=== PATIENT | female | born 1995 | race Caucasian/White ===

== ENCOUNTER 2017-08-13 02:09 | Emergency (ER) | payer OTHER ==
[~2017-08-13] VITALS: Ht 157.5 cm; Wt 91.6 kg
[2017-08-13 02:29] VITALS: BP 113/53; Ht 157.5 cm; Wt 91.6 kg
== END 2017-08-13 04:52 | disposition left against medical advice (07) ==
LOC: ED 02:09
DX: Z53.21 Procedure and treatment not carried out due to patient leaving prior to being seen by health care provider (principal)

== ENCOUNTER 2017-11-08 20:01 | Emergency (ER) | payer OTHER ==
[~2017-11-08] VITALS: Ht 157.5 cm; Wt 93.4 kg
[2017-11-08 20:04] VITALS: Ht 157.5 cm; Wt 93.4 kg
[2017-11-08 20:14] LABS: microscopic required? NO
[2017-11-08 20:21] LABS: UA SPECIFIC GRAVITY 1.015 (1.005-1.035); urine erythrocyte NEGATIVE (NEGATIVE)
[2017-11-08 22:12] VITALS: BP 121/82
== END 2017-11-08 22:12 | disposition home or self-care (01) ==
LOC: ED 20:01
PROVIDERS: Emergency Medicine
DX: B34.9 Viral infection, unspecified (principal)
CPT/HCPCS: 87804; Q0162

== ENCOUNTER 2018-02-06 20:44 | Emergency (ER) | payer OTHER ==
[~2018-02-06] VITALS: Ht 157.5 cm; Wt 95.2 kg
[2018-02-06 20:47] VITALS: Ht 157.5 cm; Wt 95.2 kg
[2018-02-06 21:31] VITALS: BP 136/80
== END 2018-02-06 21:31 | disposition home or self-care (01) ==
LOC: ED 20:44
DX: H01.113 Allergic dermatitis of right eye, unspecified eyelid (principal); H01.116 Allergic dermatitis of left eye, unspecified eyelid
CPT/HCPCS: J1200; J7512

== ENCOUNTER 2018-06-23 21:59 | Emergency (ER) | payer OTHER ==
[~2018-06-23] VITALS: Ht 157.5 cm; Wt 95.7 kg
[2018-06-23 22:22] VITALS: Ht 157.5 cm; Wt 95.7 kg
[2018-06-23 22:54] VITALS: BP 152/83
== END 2018-06-23 22:54 | disposition home or self-care (01) ==
LOC: ED 21:59
DX: L29.9 Pruritus, unspecified (principal)

== ENCOUNTER 2018-08-14 00:11 | Emergency (ER) | payer OTHER ==
[~2018-08-14] VITALS: Ht 160 cm; Wt 95.7 kg
[2018-08-14 00:17] VITALS: BP 116/70; Ht 160 cm; Wt 95.7 kg
== END 2018-08-14 01:47 | disposition home or self-care (01) ==
LOC: ED 00:11
DX: S63.617A Unspecified sprain of left little finger, initial encounter (principal); X58.XXXA Exposure to other specified factors, initial encounter; Y93.89 Activity, other specified; Y92.89 Other specified places as the place of occurrence of the external cause; Y99.8 Other external cause status

== ENCOUNTER 2019-02-10 05:58 | Emergency (ER) | payer OTHER ==
[~2019-02-10] VITALS: Ht 157.5 cm; Wt 98.9 kg
[2019-02-10 06:20] VITALS: Ht 157.5 cm; Wt 98.9 kg
[2019-02-10 07:06] VITALS: BP 132/85
== END 2019-02-10 07:00 | disposition home or self-care (01) ==
LOC: ED 05:58
DX: L72.3 Sebaceous cyst (principal)

== ENCOUNTER 2019-07-29 08:39 | Emergency (ER) | payer OTHER ==
[~2019-07-29] VITALS: Ht 157.5 cm; Wt 97.1 kg
[2019-07-29 08:53] VITALS: Ht 157.5 cm; Wt 97.1 kg
[2019-07-29 09:47] VITALS: BP 126/64
== END 2019-07-29 09:47 | disposition home or self-care (01) ==
LOC: ED 08:39
DX: H10.11 Acute atopic conjunctivitis, right eye (principal)

== ENCOUNTER 2019-10-04 14:48 | Emergency (ER) | payer OTHER ==
[~2019-10-04] VITALS: Ht 157.5 cm; Wt 96.6 kg
[2019-10-04 15:09] VITALS: Ht 157.5 cm; Wt 96.6 kg
[2019-10-04 15:31] LABS: BASOPHIL % 0.5 % (0-2); PLATELET COUNT 295 x10^3mcL (130-400); RED CELL DISTRIBUTION WIDTH 13.2 % (11.5-14.5)
[2019-10-04 15:44] LABS: CALCIUM 8.8 mg/dL (8.5-10.1); CARBON DIOXIDE 29.2 mmol/L (21-32); CHLORIDE SERUM 105 mmol/L (98-107); CREATININE SERUM 0.7 mg/dL (0.6-1.0); GFR1 > 60 mL/min; GLUCOSE SERUM 94 mg/dL (74-106); POTASSIUM SERUM 3.9 mmol/L (3.5-5.1); SODIUM SERUM 142 mmol/L (136-145)
[2019-10-04 16:05] LABS: ALBUMIN 3.6 g/dL (3.4-5.0); ALKALINE PHOSPHATASE 65 U/L (46-116); ALT/SGPT 42 U/L (14-59); AST/SGOT 25 U/L (15-37); BILIRUBIN TOTAL 0.4 mg/dL (0.20-1.00); TOTAL PROTEIN, SERUM 7.5 g/dL (6.4-8.2)
[2019-10-04 16:22] LABS: microscopic required? NO
[2019-10-04 16:56] LABS: urine erythrocyte NEGATIVE (NEGATIVE)
[2019-10-04 17:45] VITALS: BP 133/80
== END 2019-10-04 17:45 | disposition home or self-care (01) ==
LOC: ED 14:48
PROVIDERS: Emergency Medicine
DX: J01.10 Acute frontal sinusitis, unspecified (principal); R42 Dizziness and giddiness; R11.0 Nausea
CPT/HCPCS: 36415